=== PATIENT | male | born 1990 | race Caucasian/White ===

== ENCOUNTER 2022-02-20 20:40 | Inpatient (IN) | payer OTHER ==
[~2022-02-20] VITALS: Ht 177.8 cm; Wt 150.0 kg
[~2022-02-20 20:40] MED LIST: sevoflurane 250ml liquid IH ONE
[2022-02-20] MEDS ORDERED: acetaminophen 325mg tablet PO STA (23:29)
[2022-02-20] MEDS ORDERED: morphine 4 MG/ML inj SYRINge IV ONE (23:30)
[2022-02-20] MEDS ORDERED: piperacillin/tazo 3.375gm/50ml 50 ML IV ONE (23:30)
[2022-02-20] MEDS ORDERED: normal saline 1000ML IV soln IVB ONE (23:30)
[2022-02-21 00:01] LABS: BASOPHILS % (AUTO) 0.2 % (0-1); EOSINOPHILS % (AUTO) 0 % (0-6); HEMATOCRIT 46.9 % (42.0-52.0); HEMOGLOBIN 15.7 g/dl (14.0-17.9); LYMPHOCYTES # (AUTO) 2.2 X10'3 (1.1-4.8); LYMPHOCYTES % (AUTO) 12.8 % (21-51); MEAN CORPUSCULAR HEMOGLOBIN 28.2 PG (27.0-31.0); MEAN CORPUSCULAR HGB CONC 33.5 g/dL (33.0-36.5); MEAN CORPUSCULAR VOLUME 84.2 FL (78-98); MEAN PLATELET VOLUME 7.5 FL (7.4-10.4); MONOCYTES # (AUTO) 1.4 X10'3 (0-0.9); MONOCYTES % (AUTO) 8.1 % (2-12); NEUTROPHILS # (AUTO) 13.3 X10'3 (1.8-7.7); NEUTROPHILS % (AUTO) 78.9 % (42-75); PLATELET COUNT 202 X10'3 (140-440); RED BLOOD COUNT 5.56 X10'6 (4.70-6.10); RED CELL DISTRIBUTION WIDTH 13.5 % (11.5-14.5); WHITE BLOOD COUNT 16.9 X10'3 (4.5-11.0)
[2022-02-21 00:04] LABS: ALANINE AMINOTRANSFERASE 46 U/L (12-78); ALBUMIN 4.1 G/DL (3.4-5.0); ALKALINE PHOSPHATASE 73 IU/L (46-116); ANION GAP 10 (8-16); ASPARTATE AMINO TRANSFERASE 22 U/L (10-37); BILIRUBIN,TOTAL 1.5 MG/DL (0.1-1.0); BLOOD UREA NITROGEN 14 MG/DL (7-18); BUN/CREATININE RATIO 13.6 (5.4-32.0); CALCIUM 9.1 MG/DL (8.5-10.1); CHLORIDE 102 MMOL/L (99-107); CREATININE 1.03 MG/DL (0.60-1.10); GLUCOSE 124 MG/DL (70-104); POTASSIUM 4.1 MMOL/L (3.5-5.1); SODIUM 139 MMOL/L (135-145); TOTAL CARBON DIOXIDE 27.5 MMOL/L (24-32); TOTAL PROTEIN 8.4 G/DL (6.4-8.2); eGFR 83 ML/MIN
[2022-02-21] MEDS ORDERED: ondansetron/PF 4mg/2ml inj IV PRN (02:25)
[2022-02-21] MEDS ORDERED: magnesium 4gm in 100ml NS 100 ML IV PRN (02:25)
[2022-02-21] MEDS ORDERED: magnesium 2GM in 50ml NS 50 ML IV PRN (02:25)
[2022-02-21] MEDS ORDERED: potassium CL 10mEq/100ml bag 100 ML IV PRN (02:25)
[2022-02-21] MEDS ORDERED: POTASSIUM BICARB 20meq eff tab 20 MEQ TABLET.EFF PO PRN (02:25)
[2022-02-21] MEDS ORDERED: magnesium Cl slow-release 64mg tablet PO PRN (02:25)
[2022-02-21] MEDS ORDERED: magnesium hydroxide 30ml (MOM) UD suspension PO PRN (02:25)
[2022-02-21] MEDS ORDERED: mag hydrox/Alum hydrox/simeth 30ml oral suspension PO PRN (02:25)
[2022-02-21 02:41] LABS: CLARITY,URINE CLEAR (Clear); COLOR,URINE YELLOW (Yellow); GLUCOSE, URINE NEGATIVE (Neg); KETONES,URINE NEGATIVE (Neg); LEUKOCYTE ESTERASE ,URINE NEGATIVE (Neg); NITRITES, URINE NEGATIVE (Neg); OCCULT BLOOD,URINE NEGATIVE (Neg); PH,URINE 5.5 (4.8-8.0); PROTEIN,URINE NEGATIVE (Neg); UROBILINOGEN,URINE 0.2 E.U/dL (0.2-1.0)
[2022-02-21 02:42] LABS: UA COLLECTION TYPE URINAL
[2022-02-21] MEDS: normal saline 1000ml 1,000 ML IV SCH ×3 (03:07→20:26)
[2022-02-21] MEDS ORDERED: NO HOME MEDS (03:54)
[2022-02-21] MEDS: morphine 2 MG/ML inj. syringe IV PRN ×4 (04:25→22:07)
--- NOTE | 2022-02-21 04:50 | NUR ---
pt moved to hospital bed for comfort.
--- NOTE | 2022-02-21 06:55 | NUR ---
dr denise at bedside
[2022-02-21 07:48] LABS: MAGNESIUM 1.8 MG/DL (1.5-2.4)
[2022-02-21] MEDS: docusate sod 100mg capsule PO SCH ×2 (08:00→20:00)
[2022-02-21] MEDS: K and/or MAG REPLACEMENT MC SCH ×2 (08:00→20:30)
[2022-02-21] MEDS: piperacillin/tazo 3.375gm/50ml 50 ML IV SCH ×2 (08:14→15:30)
[2022-02-21] MEDS: acetaminophen 325mg tablet PO PRN ×2 (10:07→16:53)
--- NOTE | 2022-02-21 16:58 | NUR ---
ASSISTING RN WITH PT CARE, PT C/O SWELLING INCREASED TO SCOTAL AREA "THERE ARE NO MORE WRINKLES...IT IS SMOOTH", MEDICATED WITH TYLENOL AND MORPHINE PER ORDER, REPORT TO PRIMARY NURSE, ELISEO
[2022-02-21] MEDS ORDERED: vancomycin/NS 1 GM ADD-VANTAGE 250 ML IV SCH (17:20)
[2022-02-21 20:05] VITALS: BP 133/81
--- NOTE | 2022-02-21 20:05 | NUR ---
PATIENT ADMITTED TO ROOM 4016 FROM ER FOR SCROTAL ABSCESS. PLACED COMFORTABLE IN BED. VITAL SIGNS TAKEN AND RECORDED.
[2022-02-21] MEDS: vancomycin/NS 1 GM ADD-VANTAGE 250 ML IV SCH (21:51)
[2022-02-21 22:00] VITALS: BP 141/89
[2022-02-22] MEDS: piperacillin/tazo 3.375gm/50ml 50 ML IV SCH ×3 (00:52→16:26)
[2022-02-22] MEDS: vancomycin/NS 1 GM ADD-VANTAGE 250 ML IV SCH ×3 (04:20→20:24)
[2022-02-22] MEDS: morphine 2 MG/ML inj. syringe IV PRN (04:25)
[2022-02-22 06:00] VITALS: BP 123/75
--- NOTE | 2022-02-22 06:25 | NUR ---
Problems reprioritized. Patient report given, questions answered & plan of care reviewed with KELSIE GARCIA.
[2022-02-22 06:50] LABS: BASOPHILS % (AUTO) 0.1 % (0-1); EOSINOPHILS % (AUTO) 0.4 % (0-6); HEMATOCRIT 38.7 % (42.0-52.0); HEMOGLOBIN 13.4 g/dl (14.0-17.9); LYMPHOCYTES # (AUTO) 2.1 X10'3 (1.1-4.8); LYMPHOCYTES % (AUTO) 16.7 % (21-51); MEAN CORPUSCULAR HEMOGLOBIN 28.9 PG (27.0-31.0); MEAN CORPUSCULAR HGB CONC 34.5 g/dL (33.0-36.5); MEAN CORPUSCULAR VOLUME 83.8 FL (78-98); MEAN PLATELET VOLUME 7.4 FL (7.4-10.4); MONOCYTES # (AUTO) 1.2 X10'3 (0-0.9); MONOCYTES % (AUTO) 9.7 % (2-12); NEUTROPHILS % (AUTO) 73.1 % (42-75); PLATELET COUNT 157 X10'3 (140-440); RED BLOOD COUNT 4.62 X10'6 (4.70-6.10); RED CELL DISTRIBUTION WIDTH 13.2 % (11.5-14.5); WHITE BLOOD COUNT 12.3 X10'3 (4.5-11.0)
[2022-02-22 07:12] LABS: ALANINE AMINOTRANSFERASE 35 U/L (12-78); ALBUMIN/GLOBULIN RATIO 0.8 (1.1-1.5); ALKALINE PHOSPHATASE 58 IU/L (46-116); ANION GAP 5 (8-16); ASPARTATE AMINO TRANSFERASE 20 U/L (10-37); BLOOD UREA NITROGEN 9 MG/DL (7-18); BUN/CREATININE RATIO 10.2 (5.4-32.0); CALCIUM 8.3 MG/DL (8.5-10.1); CHLORIDE 105 MMOL/L (99-107); CREATININE 0.88 MG/DL (0.60-1.10); GLUCOSE 111 MG/DL (70-104); POTASSIUM 3.7 MMOL/L (3.5-5.1); SODIUM 134 MMOL/L (135-145); eGFR > 90 ML/MIN
[2022-02-22 07:14] LABS: BILIRUBIN,TOTAL 1.2 MG/DL (0.1-1.0)
[2022-02-22] MEDS: K and/or MAG REPLACEMENT MC SCH ×2 (07:45→20:00)
[2022-02-22] MEDS: docusate sod 100mg capsule PO SCH ×2 (07:45→20:00)
[2022-02-22] MEDS: normal saline 1000ml 1,000 ML IV SCH ×2 (07:55→18:25)
--- NOTE | 2022-02-22 08:02 | NUR ---
PAGER ID: [phone] MESSAGE: [phone] JOSE Chong for Dom Escamilla in [id number]. Asking for Tylenol for headache. Thanks
[2022-02-22] MEDS: acetaminophen 325mg tablet PO PRN ×2 (08:39→16:47)
[2022-02-22 10:00] VITALS: BP 123/70
[2022-02-22 18:00] VITALS: BP 126/77
--- NOTE | 2022-02-22 18:20 | NUR ---
Problems reprioritized. Patient report given, questions answered & plan of care reviewed with JOSE Weldon.
--- NOTE | 2022-02-22 18:30 | NUR ---
Patient in room ORTHO 4016. I have received report from KELSIE GARCIA and had the opportunity to ask questions and assume patient care.
[2022-02-22] MEDS ORDERED: VANCOMYCIN LEVEL IV ONE (19:30)
[2022-02-22 22:00] VITALS: BP 122/79
[2022-02-23] MEDS: piperacillin/tazo 3.375gm/50ml 50 ML IV SCH ×3 (00:26→17:25)
[2022-02-23] MEDS: normal saline 1000ml 1,000 ML IV SCH ×2 (00:26→17:30)
[2022-02-23] MEDS: morphine 2 MG/ML inj. syringe IV PRN ×2 (02:03→08:31)
[2022-02-23] MEDS: vancomycin/NS 1 GM ADD-VANTAGE 250 ML IV SCH (04:19)
[2022-02-23 06:00] VITALS: BP 119/72
--- NOTE | 2022-02-23 06:30 | NUR ---
Problems reprioritized. Patient report given, questions answered & plan of care reviewed with DEMETRA GARCIA.
[2022-02-23 07:32] LABS: BASOPHILS % (AUTO) 0.1 % (0-1); EOSINOPHILS # (AUTO) 0.1 X10'3 (0-0.9); EOSINOPHILS % (AUTO) 1.4 % (0-6); HEMATOCRIT 38.4 % (42.0-52.0); HEMOGLOBIN 13.2 g/dl (14.0-17.9); LYMPHOCYTES # (AUTO) 1.7 X10'3 (1.1-4.8); LYMPHOCYTES % (AUTO) 20.6 % (21-51); MEAN CORPUSCULAR HEMOGLOBIN 28.3 PG (27.0-31.0); MEAN CORPUSCULAR HGB CONC 34.3 g/dL (33.0-36.5); MEAN CORPUSCULAR VOLUME 82.7 FL (78-98); MEAN PLATELET VOLUME 7.4 FL (7.4-10.4); MONOCYTES # (AUTO) 0.8 X10'3 (0-0.9); MONOCYTES % (AUTO) 10.1 % (2-12); NEUTROPHILS # (AUTO) 5.7 X10'3 (1.8-7.7); NEUTROPHILS % (AUTO) 67.8 % (42-75); PLATELET COUNT 195 X10'3 (140-440); RED BLOOD COUNT 4.65 X10'6 (4.70-6.10); RED CELL DISTRIBUTION WIDTH 13.3 % (11.5-14.5); WHITE BLOOD COUNT 8.4 X10'3 (4.5-11.0)
[2022-02-23 07:44] LABS: ALANINE AMINOTRANSFERASE 34 U/L (12-78); ALBUMIN/GLOBULIN RATIO 0.7 (1.1-1.5); ALKALINE PHOSPHATASE 59 IU/L (46-116); ANION GAP 8 (8-16); ASPARTATE AMINO TRANSFERASE 21 U/L (10-37); BILIRUBIN,TOTAL 0.8 MG/DL (0.1-1.0); BLOOD UREA NITROGEN 10 MG/DL (7-18); CALCIUM 8.3 MG/DL (8.5-10.1); CHLORIDE 104 MMOL/L (99-107); CREATININE 0.91 MG/DL (0.60-1.10); GLUCOSE 102 MG/DL (70-104); POTASSIUM 3.2 MMOL/L (3.5-5.1); SODIUM 138 MMOL/L (135-145); TOTAL CARBON DIOXIDE 25.8 MMOL/L (24-32); TOTAL PROTEIN 7.1 G/DL (6.4-8.2); eGFR > 90 ML/MIN
[2022-02-23] MEDS: docusate sod 100mg capsule PO SCH ×2 (08:00→19:40)
[2022-02-23] MEDS: K and/or MAG REPLACEMENT MC SCH ×2 (08:00→19:40)
[2022-02-23] MEDS: POTASSIUM BICARB 20meq eff tab 20 MEQ TABLET.EFF PO PRN ×2 (08:37→19:44)
[2022-02-23 10:00] VITALS: BP 133/86
[2022-02-23] MEDS: VANCOmycin 1250MG/NS 250ml Bag 250 ML IV SCH ×2 (12:29→19:35)
[2022-02-23 18:00] VITALS: BP 106/68
--- NOTE | 2022-02-23 18:30 | NUR ---
Patient in room ORTHO 4016. I have received report from DEMETRA GARCIA and had the opportunity to ask questions and assume patient care.
[2022-02-23 22:00] VITALS: BP 121/75
[2022-02-24] VITALS (21 sets, daily range): BP systolic 112–148; BP diastolic 54–96
[2022-02-24] MEDS: piperacillin/tazo 3.375gm/50ml 50 ML IV SCH ×3 (00:12→17:18)
[2022-02-24] MEDS: POTASSIUM BICARB 20meq eff tab 20 MEQ TABLET.EFF PO PRN (00:12)
[2022-02-24] MEDS: normal saline 1000ml 1,000 ML IV SCH ×2 (00:25→04:21)
[2022-02-24] MEDS: VANCOmycin 1250MG/NS 250ml Bag 250 ML IV SCH ×3 (04:12→20:14)
--- NOTE | 2022-02-24 06:30 | NUR ---
Problems reprioritized. Patient report given, questions answered & plan of care reviewed with EMILY GARCIA.
[2022-02-24 07:41] LABS: BASOPHILS % (AUTO) 0.4 % (0-1); EOSINOPHILS # (AUTO) 0.2 X10'3 (0-0.9); EOSINOPHILS % (AUTO) 2.3 % (0-6); HEMATOCRIT 40.6 % (42.0-52.0); LYMPHOCYTES # (AUTO) 1.8 X10'3 (1.1-4.8); LYMPHOCYTES % (AUTO) 27.3 % (21-51); MEAN CORPUSCULAR HEMOGLOBIN 28.9 PG (27.0-31.0); MEAN CORPUSCULAR HGB CONC 34.4 g/dL (33.0-36.5); MEAN CORPUSCULAR VOLUME 83.8 FL (78-98); MEAN PLATELET VOLUME 7.1 FL (7.4-10.4); MONOCYTES # (AUTO) 0.6 X10'3 (0-0.9); MONOCYTES % (AUTO) 8.9 % (2-12); NEUTROPHILS # (AUTO) 4.1 X10'3 (1.8-7.7); NEUTROPHILS % (AUTO) 61.1 % (42-75); PLATELET COUNT 209 X10'3 (140-440); RED BLOOD COUNT 4.84 X10'6 (4.70-6.10); WHITE BLOOD COUNT 6.7 X10'3 (4.5-11.0)
[2022-02-24] MEDS: docusate sod 100mg capsule PO SCH ×2 (08:00→19:54)
[2022-02-24] MEDS: K and/or MAG REPLACEMENT MC SCH ×2 (08:00→20:00)
[2022-02-24 08:01] LABS: ALANINE AMINOTRANSFERASE 39 U/L (12-78); ALBUMIN/GLOBULIN RATIO 0.7 (1.1-1.5); ALKALINE PHOSPHATASE 60 IU/L (46-116); ANION GAP 8 (8-16); ASPARTATE AMINO TRANSFERASE 26 U/L (10-37); BILIRUBIN,TOTAL 0.6 MG/DL (0.1-1.0); BLOOD UREA NITROGEN 11 MG/DL (7-18); BUN/CREATININE RATIO 13.1 (5.4-32.0); CALCIUM 8.5 MG/DL (8.5-10.1); CHLORIDE 107 MMOL/L (99-107); CREATININE 0.84 MG/DL (0.60-1.10); GLUCOSE 94 MG/DL (70-104); POTASSIUM 3.8 MMOL/L (3.5-5.1); SODIUM 140 MMOL/L (135-145); TOTAL CARBON DIOXIDE 24.8 MMOL/L (24-32); TOTAL PROTEIN 7.2 G/DL (6.4-8.2); eGFR > 90 ML/MIN
[2022-02-24 08:05] LABS: APTT 25 SECONDS (22-32)
[2022-02-24] MEDS: morphine 2 MG/ML inj. syringe IV PRN ×3 (08:23→19:36)
[2022-02-24] MEDS: ringers solution, lacted 1,000 ML IV SCH (09:20)
[2022-02-24] MEDS ORDERED: famotidine/PF 10 mg/ml inj IV PRN (09:20)
[2022-02-24] MEDS ORDERED: VANCOMYCIN LEVEL IV ONE ×2 (11:30→19:30)
--- NOTE | 2022-02-24 11:31 | NUR ---
Pt transferred to OR via bed and report given to Recovery Room nurse.
[2022-02-24] MEDS ORDERED: midazolam 1 mg/ML 2ml injection ONE (12:19)
[2022-02-24] MEDS ORDERED: fentaNYL/PF 50MCG/1 ML 2ML syringe ONE ×2 (12:19→12:33)
[2022-02-24] MEDS ORDERED: propofol inj 20 ML IV ONE (12:33)
--- NOTE | 2022-02-24 12:55 | NUR ---
PT ARRIVED TO VIA BED ACCOMPANIED BY DR KERR, ANESTHESIA REPORT GIVEN, VSS, PT WAKING UP, DENIES PAIN, DSG TO LEFT POSTERIOR SCROTUM-CDI WITH PACKING IN PLACE, SCDS ON, 20G PIV LEFT HAND.
[2022-02-24] MEDS ORDERED: morphine 4 MG/ML inj SYRINge IV PRN (13:00)
[2022-02-24] MEDS ORDERED: proCHLORperazine 10 MG/2 ml inj IV PRN (13:00)
[2022-02-24] MEDS ORDERED: morphine 2 MG/ML inj. syringe IV PRN (13:00)
[2022-02-24] MEDS ORDERED: ondansetron/PF 4mg/2ml inj IV PRN (13:00)
[2022-02-24] MEDS ORDERED: ringers solution, lacted 1,000 ML IV SCH (13:00)
[2022-02-24] MEDS ORDERED: meperidine/PF 25mg/ml syringe IV PRN ×3 (13:00)
--- NOTE | 2022-02-24 14:25 | NUR ---
PT AWAKE AND TOLERATING WATER, PAIN MINIMAL, VSS, NO CHANGES IN DSG OR ASSESSMENT, REPORT CALLED TO POISER-STEVE ALL QUESTIONS ANSWERED, TAKEN VIA BED TO ROOM 4016, BED LOW AND LOCKED, CALL LIGHT IN REACH.
--- NOTE | 2022-02-24 14:30 | NUR ---
Pt transferred from Recovery room to 4016 via bed. Pt awake and alert. VSS. Gauze dressing/mesh pants to scrotal area with moderate amount of serosang. drainage. Pt reported scrotal area pain. Morphine to be given for pain.
--- NOTE | 2022-02-24 18:00 | NUR ---
Patient in room ORTHO 4016. I have received report from JOSE Alfred and had the opportunity to ask questions and assume patient care.
[2022-02-25] MEDS: piperacillin/tazo 3.375gm/50ml 50 ML IV SCH ×4 (00:07→23:53)
[2022-02-25] MEDS: morphine 2 MG/ML inj. syringe IV PRN ×5 (00:08→23:57)
--- NOTE | 2022-02-25 00:33 | NUR ---
*Correction* 2200 vitals for 02/24/2022 Addendum: 02/25/22 at 0035 by Nataliya Medley LVN Amended: Links added.
[2022-02-25 02:00] VITALS: BP 123/68
[2022-02-25] MEDS: ringers solution, lacted 1,000 ML IV SCH (03:56)
[2022-02-25] MEDS: normal saline 1000ml 1,000 ML IV SCH ×3 (03:56→17:07)
[2022-02-25] MEDS: VANCOmycin 1250MG/NS 250ml Bag 250 ML IV SCH ×3 (03:58→20:15)
[2022-02-25 06:00] VITALS: BP 133/85
--- NOTE | 2022-02-25 06:25 | NUR ---
Patient in room ORTHO 4016. I have received report from BONY An and had the opportunity to ask questions and assume patient care.
--- NOTE | 2022-02-25 06:28 | NUR ---
Problems reprioritized. Patient report given, questions answered & plan of care reviewed with JOSE Lara.
[2022-02-25 06:36] LABS: BASOPHILS % (AUTO) 0.4 % (0-1); EOSINOPHILS # (AUTO) 0.2 X10'3 (0-0.9); EOSINOPHILS % (AUTO) 2.5 % (0-6); HEMOGLOBIN 13.3 g/dl (14.0-17.9); LYMPHOCYTES # (AUTO) 1.6 X10'3 (1.1-4.8); LYMPHOCYTES % (AUTO) 23.2 % (21-51); MEAN CORPUSCULAR HEMOGLOBIN 28.5 PG (27.0-31.0); MEAN CORPUSCULAR HGB CONC 34.1 g/dL (33.0-36.5); MEAN CORPUSCULAR VOLUME 83.5 FL (78-98); MONOCYTES # (AUTO) 0.7 X10'3 (0-0.9); MONOCYTES % (AUTO) 9.4 % (2-12); NEUTROPHILS # (AUTO) 4.5 X10'3 (1.8-7.7); NEUTROPHILS % (AUTO) 64.5 % (42-75); PLATELET COUNT 234 X10'3 (140-440); RED BLOOD COUNT 4.67 X10'6 (4.70-6.10); RED CELL DISTRIBUTION WIDTH 13.2 % (11.5-14.5); WHITE BLOOD COUNT 6.9 X10'3 (4.5-11.0)
--- NOTE | 2022-02-25 06:47 | NUR ---
I have reviewed and agree with assmt by Nataliya LOVETT
[2022-02-25 06:53] LABS: ALANINE AMINOTRANSFERASE 50 U/L (12-78); ALBUMIN/GLOBULIN RATIO 0.7 (1.1-1.5); ALKALINE PHOSPHATASE 65 IU/L (46-116); ANION GAP 6 (8-16); ASPARTATE AMINO TRANSFERASE 32 U/L (10-37); BILIRUBIN,TOTAL 0.7 MG/DL (0.1-1.0); BLOOD UREA NITROGEN 10 MG/DL (7-18); BUN/CREATININE RATIO 11.2 (5.4-32.0); CALCIUM 8.5 MG/DL (8.5-10.1); CHLORIDE 104 MMOL/L (99-107); CREATININE 0.89 MG/DL (0.60-1.10); GLUCOSE 85 MG/DL (70-104); POTASSIUM 3.6 MMOL/L (3.5-5.1); SODIUM 138 MMOL/L (135-145); TOTAL CARBON DIOXIDE 27.9 MMOL/L (24-32); TOTAL PROTEIN 7.1 G/DL (6.4-8.2); eGFR > 90 ML/MIN
[2022-02-25] MEDS: docusate sod 100mg capsule PO SCH ×2 (07:21→20:00)
[2022-02-25] MEDS: K and/or MAG REPLACEMENT MC SCH ×2 (08:00→20:00)
[2022-02-25 10:00] VITALS: BP 131/83
[2022-02-25] MEDS ORDERED: HYDR-3965 PO (14:08)
[2022-02-25] MEDS ORDERED: SULF1TAB49 PO (14:08)
--- NOTE | 2022-02-25 15:00 | NUR ---
PAGER ID: [phone] MESSAGE: Dr. Newsome - I see the DC for 0677, Dr. Ybarra put in orders for dressing change tomorrow. Do we want to DC still? Jane coyne [phone]
[2022-02-25 18:00] VITALS: BP 131/73
--- NOTE | 2022-02-25 18:00 | NUR ---
Patient in room ORTHO 4016. I have received report from JOSE Lara and had the opportunity to ask questions and assume patient care.
--- NOTE | 2022-02-25 18:34 | NUR ---
Problems reprioritized. Patient report given, questions answered & plan of care reviewed with BONY An.
[2022-02-25 22:00] VITALS: BP 121/85
--- NOTE | 2022-02-26 03:01 | NUR ---
AGREE WITH BSS SOLUTION ARCHITECT PHYSICAL ASSESSMENT CHARTED
[2022-02-26] MEDS: VANCOmycin 1250MG/NS 250ml Bag 250 ML IV SCH ×2 (04:49→11:23)
[2022-02-26] MEDS: normal saline 1000ml 1,000 ML IV SCH (04:53)
[2022-02-26 06:10] VITALS: BP 122/85
[2022-02-26 06:14] LABS: BASOPHILS % (AUTO) 0.4 % (0-1); EOSINOPHILS # (AUTO) 0.2 X10'3 (0-0.9); EOSINOPHILS % (AUTO) 2.3 % (0-6); HEMOGLOBIN 13.6 g/dl (14.0-17.9); LYMPHOCYTES # (AUTO) 1.4 X10'3 (1.1-4.8); LYMPHOCYTES % (AUTO) 18.2 % (21-51); MEAN CORPUSCULAR HEMOGLOBIN 28.3 PG (27.0-31.0); MEAN CORPUSCULAR VOLUME 83.3 FL (78-98); MEAN PLATELET VOLUME 6.7 FL (7.4-10.4); MONOCYTES # (AUTO) 0.9 X10'3 (0-0.9); MONOCYTES % (AUTO) 11.1 % (2-12); NEUTROPHILS # (AUTO) 5.2 X10'3 (1.8-7.7); PLATELET COUNT 242 X10'3 (140-440); RED CELL DISTRIBUTION WIDTH 13.5 % (11.5-14.5); WHITE BLOOD COUNT 7.7 X10'3 (4.5-11.0)
--- NOTE | 2022-02-26 06:36 | NUR ---
Problems reprioritized. Patient report given, questions answered & plan of care reviewed with JOSE Sánchez.
[2022-02-26 06:58] LABS: ALANINE AMINOTRANSFERASE 51 U/L (12-78); ALBUMIN/GLOBULIN RATIO 0.7 (1.1-1.5); ALKALINE PHOSPHATASE 62 IU/L (46-116); ANION GAP 8 (8-16); ASPARTATE AMINO TRANSFERASE 30 U/L (10-37); BILIRUBIN,TOTAL 0.4 MG/DL (0.1-1.0); BLOOD UREA NITROGEN 11 MG/DL (7-18); BUN/CREATININE RATIO 10.6 (5.4-32.0); CALCIUM 8.8 MG/DL (8.5-10.1); CHLORIDE 108 MMOL/L (99-107); CREATININE 1.04 MG/DL (0.60-1.10); GLUCOSE 102 MG/DL (70-104); POTASSIUM 3.7 MMOL/L (3.5-5.1); SODIUM 141 MMOL/L (135-145); TOTAL CARBON DIOXIDE 24.8 MMOL/L (24-32); TOTAL PROTEIN 7.2 G/DL (6.4-8.2); eGFR 82 ML/MIN
[2022-02-26] MEDS: piperacillin/tazo 3.375gm/50ml 50 ML IV SCH (07:33)
[2022-02-26] MEDS: morphine 2 MG/ML inj. syringe IV PRN ×2 (07:33→13:17)
[2022-02-26] MEDS: docusate sod 100mg capsule PO SCH (08:00)
[2022-02-26] MEDS: K and/or MAG REPLACEMENT MC SCH (08:00)
[2022-02-26 10:00] VITALS: BP 136/82
--- NOTE | 2022-02-26 14:45 | NUR ---
Patient discharged at this time with . He had dressing changed to left scrotum and had some discomfort. It was re-packed with iodaform and wet to dry. He had a paper copy of his prescriptions given to him at discharge. I provided dressing supplies her can take home.
== END 2022-02-26 14:53 | disposition home or self-care (01) | DRG 854 ==
LOC: ER 20:41 → ED HOLD 02-21 02:25 → EDBEDREQ 02-21 19:01 → ORTHO 4S 02-21 20:02
PROVIDERS: ADMIT Internal Medicine; ATTEND Family Medicine
PROC: 0VB50ZZ Excision of Scrotum, Open Approach (ICD-10-PCS; principal; 2022-02-24 12:08)
DX: A41.9 Sepsis, unspecified organism (principal); Z68.42 Body mass index [BMI] 45.0-49.9, adult; Z20.822 Contact with and (suspected) exposure to COVID-19; B95.62 Methicillin resistant Staphylococcus aureus infection as the cause of diseases classified elsewhere; E66.9 Obesity, unspecified; L02.92 Furuncle, unspecified; N45.3 Epididymo-orchitis; Z98.52 Vasectomy status
CPT/HCPCS: 99285; Z7506; 36415; 72192; 76870; 80053; 80202; 81003; 82948; 83605; 83735; 84132; 85025; 85610; 85730; 87040; 87070; 87075; 87077; 87081; 87186; 93976; A4618; A6407; A6446; A6449; A7000; G0378; J2175; J2250; J2270; J2543; J2704; J3010; J3370; J3490; J7030; J7120